=== PATIENT | male | born 1985 | race Caucasian/White ===

== ENCOUNTER 2016-06-18 13:30 | Emergency (ER) | payer SELFPAY ==
[2016-06-18 13:58] VITALS: BP 137/58; PULSE 76; TEMP 98
[2016-06-18 13:59] VITALS: BMI 19.5
[2016-06-18] MEDS ORDERED: LIDOCAINE 2% 5 ML (PRESERVATIVE FREE) VIAL INF ONE (14:38)
[2016-06-18] MEDS ORDERED: DIPHTHERIA AND TETANUS (ADULT) 0.5 ML SYR IM ONE (14:46)
--- NOTE | 2016-06-18 15:01 | EDPRACDOC ---
- General Information Chief Complaint: Wound Information Source: Patient Mode of Arrival:: Car Home Medications: Home Medications No Home Medications 06/18/16 Allergies/Adverse Reactions: Allergies Allergy/AdvReac Type Severity Reaction Status Date / Time No Known Allergies Allergy Verified 06/18/16 14:42 - History of Present Illness Onset: today HPI: PT PRESENTS TODAY WITH LACERATION TO LEFT INDEX FINGER WITH CONTAMINATED (DIRT) RAZOR BLADE OVERCOIL STEPPER. NEEDS TETANUS. NO OTHER INJURY REPORTED. - Tetanus Status Last Tetanus: No - Pain Pain Severity: Mild Bleeding: Reports: Controlled Associated Signs & Symptoms: Reports: None ED Past Medical History - History Reviewed Yes Nurses notes reviewed and agree except as marked - Patient Medical History Psychological History: Denies: Depression - Social Medical History Smoking Status: Heavy tobacco smoker (5 or more cigarettes/day or daily pipe/ cigar) EDM Review of Systems - Review of Systems ROS Negative Except as Marked: Yes All systems reviewed and were negative except as marked Constitutional: No Symptoms Reported Neurological: No Symptoms Reported Musculoskeletal: Hand Integumentary: Wound - Physical Exam Constitutional: Alert (Awake), No apparent distress Oriented to: Time, Person, Place Last recorded Vital Signs: Last Vital Signs Temp 98 F 06/18/16 13:57 Pulse 76 06/18/16 13:57 Resp 18 06/18/16 13:57 BP 137/58 L 06/18/16 13:57 Pulse Ox 97 06/18/16 13:57 Oxygen Pulse Oxygen Saturation 97 O2 Device Oxygen Flow Rate Fraction of Inspired Oxygen ( FIO2) - HEENT Head: Normal Eye Exam: Normal Neck: Normal, Denies Pain, Midline - Respiratory/Cardiovascular Respiratory: Normal - CTA Cardiovascular: Normal - GI Palpation: Normal Tenderness: Non tender - Musculoskeletal Back: Normal Extremities: Other (NOTED 3 CM LINEAR LACERATION TO DORSAL ASPECT OF LEFT INDEX FINGER; LACERATION IS MORE OF A FLAP, BUT RUNS ALONG THE PIP JOINT AND CONTINUES TO BLEED WHEN BENDING. NO EXTENSOR TENDONS INVOLVED) - Integumentary Skin: Normal Lymphatics: Normal - Neurologic Cerebellar: Normal Mood Description: Normal Thought: Coherent Perception: Normal ED Procedures - Suture/Laceration Suture #1 Left Dorsal Head Wound Length (cm): 2.0 Wound's Depth, Shape: linear Wound Explored: contaminated Irrigated w/ Saline (ccs): 500 Betadine Prep?: Yes Anesthesia: 1% Lidocaine Volume Anesthetic (ccs): 4 Wound Debrided: minimal Wound Margins: Revised Suture Size/Type: 4:0, nylon Number of Sutures: 8 Layer Closure?: No Decision Time to Discharge: 15:05 - Departure Disposition: Home Condition: Good Final Diagnosis: [id number] Instructions: Laceration (ED) Education/Counseling Given To: Patient Education/Counseling Given Regarding: Diagnosis, Treatment, Follow Up Referrals: None,No Provider [Primary Care Provider] - One Week Additional Instructions: IBUPROFEN NEEDED FOR PAIN. CHANGE DRESSING DAILY AND KEEP WOUND CLEAN WITH SOAP/WATER. HAVE STITCHES REMOVED IN 7-10 DAYS.
== END 2016-06-18 15:27 | disposition home or self-care (01) ==
LOC: EDMC 13:30
DX: S61.211A Laceration without foreign body of left index finger without damage to nail, initial encounter (principal); W26.0XXA Contact with knife, initial encounter; Y93.9 Activity, unspecified; Z23 Encounter for immunization
CPT/HCPCS: 12001; 90471; 90714; 99282; J2001